=== PATIENT | male | born 1990 | race Caucasian/White ===

== ENCOUNTER 2018-01-02 11:03 | Emergency (ER) | payer BC, OTHER ==
[2018-01-02] MEDS: TETRACAINE 0.5% 4 ML OPH RIGHT EYE (11:52)
[2018-01-02] MEDS: FLUORESCEIN STRIP RIGHT EYE (11:52)
== END 2018-01-02 12:31 | disposition home or self-care (01) ==
LOC: FTE 11:03
DX: H57.8 Other specified disorders of eye and adnexa (principal)
CPT/HCPCS: 99283; Z7502

== ENCOUNTER 2018-06-16 16:24 | Emergency (ER) | payer BC ==
[2018-06-16] MEDS: ACETAMINOPHEN 325 MG TAB PO (19:30)
== END 2018-06-16 20:24 | disposition home or self-care (01) ==
LOC: FTE 16:24
DX: M79.671 Pain in right foot (principal)
CPT/HCPCS: 73610; 73610-RT; 99283-25